=== PATIENT | male | born 1980 ===

== ENCOUNTER 2023-06-14 21:46 | Emergency (ER) | payer SELFPAY ==
[~2023-06-14] VITALS: Ht 167.6 cm; Wt 71.2 kg
[2023-06-14 22:01] VITALS: BP 128/97
[2023-06-15] MEDS ORDERED: CEPH500 PO (00:21)
== END 2023-06-15 00:44 | disposition home or self-care (01) ==
LOC: ER 21:46
DX: N61.1 Abscess of the breast and nipple (principal)
CPT/HCPCS: 99282; A9270